=== PATIENT | female | born 1950 | race Caucasian/White ===

== ENCOUNTER 2019-07-20 12:17 | Inpatient (IN) | payer MEDICARE ==
[~2019-07-20] VITALS: Ht 157.5 cm; Wt 79.2 kg
[2019-07-20] MEDS ORDERED: ZYPREXA10 MG (12:28)
[2019-07-20 13:14] LABS: BASOPHILS 0.1 % (0-2); EOSINOPHILS 1.9 % (0-7); HEMATOCRIT 40.6 % (36.0-48.0); HEMOGLOBIN 12.8 g/dL (12-16); IMMATURE GRANULOCYTES 0.1 % (0-5); LYMPHOCYTES 25.3 % (15-50); MCH 27.8 pg (26.0-34.0); MCHC 31.5 g/dL (31.0-37.0); MCV 88.3 fL (80.0-100.0); MEAN PLATELET VOLUME 10.2 fL (7.4-10.4); MONOCYTES 9.2 % (2-11); NEUTROPHILS 63.4 % (40-80); PLATELET COUNT 236 10x3/uL (130-400); RDW 14.2 % (11.5-14.5); WBC 6.7 10x3/uL (4.8-10.8)
[2019-07-20 13:23] LABS: ANION GAP 5.1 mmol/L (8-16); CALCIUM 8.6 mg/dL (8.5-10.1); CARBON DIOXIDE 28.3 mmol/L (21.0-32.0); POTASSIUM - SERUM 3.4 mmol/L (3.5-5.1)
[2019-07-20 13:28] LABS: NITRITE NEGATIVE (NEGATIVE); SPECIFIC GRAVITY 1.015 (1.005-1.020)
[2019-07-20 13:29] LABS: BILIRUBIN NEGATIVE (NEGATIVE); GLUCOSE NEGATIVE (NEGATIVE); KETONE SMALL mg/dL (NEGATIVE); UROBILINOGEN NORMAL (NORMAL)
[2019-07-20 13:35] LABS: BACTERIA FEW /hpf (NEGATIVE); EPITHELIAL CELLS OCC /hpf (0-5); RED CELLS - URINE 0-5 /hpf (0-5); WHITE CELLS - URINE RARE /hpf (NEGATIVE)
[2019-07-20 13:37] LABS: ALBUMIN 3.6 g/dL (3.4-5.0); BILIRUBIN - TOTAL 0.54 mg/dL (0.2-1.3); THYROID STIMULATING HORMONE 3.26 uIU/mL (0.36-3.74)
[2019-07-20 14:39] LABS: UDS - AMPHET NEGATIVE QUAL (NEGATIVE); UDS - BARB NEGATIVE QUAL (NEGATIVE); UDS - BENZO NEGATIVE QUAL (NEGATIVE); UDS - COCAINE NEGATIVE QUAL (NEGATIVE); UDS - OPIATE NEGATIVE QUAL (NEGATIVE); UDS - PCP NEGATIVE QUAL (NEGATIVE); UDS - THC NEGATIVE QUAL (NEGATIVE)
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
[2019-07-20 17:06] VITALS: BP 186/89; BMI 33.2
--- NOTE | 2019-07-20 18:35 | NUR ---
PT ARRIVED TO UNIT VIA W/C [facility] WITH ER STAFF FOR INCREASED CONFUSION AND SCHIZOPHRENIA. PT IS FRIENDLY WITH STAFF. CONFUSION NOTED. VITAL SIGNS: B/P: 186/89, P: 74, R: 20, T: 97.5. WEIGHT: 170.0. MARIEL TAN SON GAVE CONSENT FOR PT TO BE ADMITTED. PT CAME WITH GLASSES AND ONE SET OF CLOTHES. PT CAN STATE NAME BUT NOT PLACE, TIME. SON WANTS CODE STATUS: FULL CODE. PT AMBULATES WITH FLAT AFFECT.
[2019-07-20 18:45] LABS: CHOL - HDL RATIO 3.2 ratio (2.3-4.1); LDL-HDL RATIO 1.7 ratio (1.5-3.5)
--- NOTE | 2019-07-20 18:48 | NUR ---
NURSE ATTEMPTED TO CALL SON TO GIVE CODEWORD. NO ANSWER.
--- NOTE | 2019-07-20 19:13 | NUR ---
SPOKE WITH PT SON AND GAVE CODE WORD. NURSE LET HIM KNOW SHE WAS OKAY AND ON OUR UNIT. HE SAID HE WOULD BE BRINGING HER GLASSES AND NURSE INFORMED HIM HE COULD BRING 2 PAIRS OF CLOTHES WITH NO STRINGS. HE VERBALIZIED UNDERSTANDING.
--- NOTE | 2019-07-20 22:20 | NUR ---
B) Patient is alert and oriented to self, confused and wanders at times, poor short term memory, has been shown her bathroom several times then wanders the hallways looking for her bathroom, I) Administered scheduled medications as ordered, monitored for safety, redirected as needed R) Medication compliant, mild exit seeking, restless, P) Continue plan of care.
[2019-07-21 05:30] LABS: CHOL - HDL RATIO 3.1 ratio (2.3-4.1); LDL-HDL RATIO 1.8 ratio (1.5-3.5)
--- NOTE | 2019-07-21 08:01 | NUR ---
RED'D PT SITTING IN CHAIR AWAITING BREAKFAST. NO DISTRESS NOTED. PT CAN MAKE SOME NEEDS KNOWN WITH ENCOURAGMENT. PT IS CONFUSED AND DISORIENTED. PT IS ALERT AND ORIENTED TO SELF ONLY. REDIRECT AND REORIENT NEEDED. PT AMBULATES. PT HAS POOR INSIGHT TO SITUATION. PREVIOUS SHIFT REOPRTED PT WANDERING HALLWAYS LOOKING FOR HER BATHROOM. PT IS PLESANT THIS A.M. WILL CONT PLAN OF CARE. WILL CONT TO MONITOR.
[2019-07-21 11:05] VITALS: BP 135/73
[2019-07-21 14:58] VITALS: Ht 157.5 cm; Wt 79.2 kg
[2019-07-21 20:00] VITALS: BP 97/58
--- NOTE | 2019-07-21 20:01 | NUR ---
B.) PT IS ALERT AND ORIENTED TO SELF AND PLACE. SHE IS RECEIVED IN THE HALLWAY OUTSIDE THE NURSES STATION. SHE IS ABLE TO AMBULATE WITHOUT ASSIST. SHE IS CALM AND COOPERATIVE WITH STAFF. SHE IS OBSERVED SOCIALIZING WITH HER PEERS. SHE ADMITS SHE IS HEARING THINGS. I.) PROVIDED PM MEDICATIONS PRESCRIBED. REDIRECT NEEDED. R.) COMPLIANT WITH ALL MEDICATIONS. EASY TO REDIRECT. P.) WILL CONTINUE TO MONITOR.
[2019-07-22 08:07] VITALS: BP 151/76
--- NOTE | 2019-07-22 08:37 | NUR ---
The patient is awake and alert and oriented to self and place, she has been socializing with staff and peers, admits to hearing voices, she is self aware. She ambulates independently. Provide prescribed meds. The patient is compliant with meds and unit milieu. She enjoys walking in the vega for exercise. Continue POC.
[2019-07-22 10:13] VITALS: BP 151/76
--- NOTE | 2019-07-22 20:39 | NUR ---
B.) PT IS ALERT AND ORIENTED TO SELF AND SITUATION. SHE IS ABLE TO VOICE NEEDS AND WANTS. SHE IS CALM, COOPERATIVE AND PLEASANT WITH STAFF. SHE HAS APPROPRIATE AFFECT. PT DENIES WANTS AND NEEDS AT THIS TIME. I.) PROVIDED PM MEDICATIONS PRESCRIBED. REDIRECT NEEDED. R.) COMPLIANT WITH ALL MEDICATIONS. EASY TO REDIRECT. P.) WILL CONTINUE TO MONITOR.
[2019-07-23 05:17] VITALS: BP 116/65
[2019-07-23 08:24] VITALS: BP 127/72
--- NOTE | 2019-07-23 09:47 | NUR ---
The patient is awake and alert she is pleasant, she denies hearing any voices. She ambulates independently. Provide prescribed meds. The patient is compliant with meds. Continue POC.
--- NOTE | 2019-07-23 10:44 | NUR ---
Spoke to the patient's son George and he says he is going to bring her some more clothes.
--- NOTE | 2019-07-23 18:37 | NUR ---
RECEIVED IN BEDROOM. RESTING IN BED WITH EYES CLOSED. RESPONDS TO VOICE. CALM AND COOPERATIVE WITH CARE AND ASSESSMENT. ENCOURAGE TO EXPRESS NEEDS. CONTINUES TO REST CALMLY IN BED. CONTINUE PLAN OF CARE.
[2019-07-23 18:55] VITALS: BP 115/68
[2019-07-24 08:29] VITALS: BP 122/70
--- NOTE | 2019-07-24 12:00 | NUR ---
RECEIVED IN HALLWAY OUTSIDE OF NURSES STATION. CALM AND COOPERATIVE WITH CARE AND ASSESSMENT. HALLUCINATING. SEEING CATS UNDER CHAIRS. REDIRECT AND REORIENT NEEDED. EATING AT THIS TIME. CONTINUE PLAN OF CARE.
--- NOTE | 2019-07-24 13:50 | NUR ---
Nutrition Follow-up: Eating well. Diet: Regular PO intake: 84% avg x 9 meals Wt: 168.6# (07/22); 170# (07/19) Last BM: 07/22 Labs reviewed Meds noted: vitamin D -Encourage PO intake and honor food preferences. -Monitor wt. -RD following.
--- NOTE | 2019-07-24 18:53 | NUR ---
RECEIVED IN DAYROOM. SITTING IN A CHAIR WITH PEERS AT HER SIDE. CALM AND COOPERQATIVE WITH CARE AND ASSESSMENT. COFUSED. ENCOURAGE TO EXPRESS NEEDS. REDIRECT AND REORIENT NEEDED. CONTINUES TO SIT CALMLY IN DAYROOM. CONTINUE PLAN OF CARE.
[2019-07-24 19:17] VITALS: BP 107/66
--- NOTE | 2019-07-24 22:49 | NUR ---
STATES THERE IS A LITTLE BOY SITTING IN HER ROOM WITH HER AND HE TALKS TO HER. SEEING BUGS AND OTHER THINGS IN HER ROOM.
[2019-07-25 07:59] VITALS: BP 111/70
--- NOTE | 2019-07-25 10:28 | PN ---
PATIENT:SUSHANT TAN MEDICAL RECORD: [id number] LOCATION:[facility] ADMISSION DATE: 07/20/19 PROGRESS NOTE DATE OF SERVICE: 07/24/2019 SUBJECTIVE: The patient's case was discussed with staff. She has no new complaint. OBJECTIVE: The patient denies intent to harm herself or others. She generally is tolerating her medicines well. She apparently did have an episode this morning where she saw a cat under the table and became very distressed by this for reasons that are unclear. ASSESSMENT: Schizophrenia. PLAN: The patient will have her Zyprexa increased to 20 mg at bedtime. She will be monitored for clinical changes associated with its use. TRANSINT:[id number] Voice Confirmation ID: [id number] DOCUMENT ID: [id number] LISE KUMAR MD at 1028 CC: [id number] DICTATION DATE: 07/24/19 1525 SERVICE ESTABLISHMENT ATTENDANT: 07/24/19 2312 ADM IN [place] [id number] [place] [id number]
--- NOTE | 2019-07-25 11:04 | NUR ---
RECEIVED IN HALLWAY OUTSIDE OF NURSES STATION. CALM AND COOPERATIVE WITH CARE AND ASSESSMENT. VERY CONFUSED. HALLUCINATING. REDIRECT AND REORIENT NEEDED. PARTICIPATING IN GROUP AT THIS TIME. CONTINUE PLAN OF CARE.
--- NOTE | 2019-07-25 11:13 | NUR ---
ERNA GOT A PHONE CALL FROM PT'S SON MARIEL TAN. SW UPDATED ON PT'S STATUS AND TREATMENT. MARIEL STATED HE WANTED HIS SISTER TO HAVE ACCESS TO BE ABLE TO CHECK ON PT. ERNA EXPLAINED HE WOULD NEED TO GIVE PASSWORD TO ANY FAMILY HE WANTS TO HAVE ACCESS. MARIEL VERBALIZED UNDERSTANDING OF DISCUSSION.
--- NOTE | 2019-07-25 19:12 | NUR ---
RECEIVED IN DAYROOM. WALKING AROUND CHECKING DOORS. WANTS TO LEAVE. CONFUSED. COOPERATIVE WITH CARE AND ASSESSMENT. ENCOURAGE TO EXPRESS NEEDS. CONTINUES TO EXIT SEEKING. CONTINUE PLAN OF CARE.
[2019-07-25 21:00] VITALS: BP 133/57
[2019-07-26 09:04] VITALS: BP 126/78
--- NOTE | 2019-07-26 09:39 | PN ---
PATIENT:SUSHANT TAN MEDICAL RECORD: [id number] LOCATION:[facility] ADMISSION DATE: 07/20/19 PROGRESS NOTE DATE OF SERVICE: 07/25/2019 SUBJECTIVE: The patient's case was discussed with staff. She has no new complaint. OBJECTIVE: The patient is having active hallucinations. She is very impaired and limited in her insight. She also has evidence of clear cognitive impairment and based upon information provided by her son and daughter it is clear that she has a dementing illness that is associated with this acute episode. ASSESSMENT: 1. Schizophrenia. 2. Dementia. PLAN: The patient will be started on Namenda at a dose of 2.5 mg twice daily. She is going to be maintained on the Zyprexa, which is at a high dose of 20 mg daily, but she has not had an opportunity for it to become effective. TRANSINT:[id number] Voice Confirmation ID: [id number] DOCUMENT ID: [id number] LISE KUMAR MD at 0939 CC: [id number] DICTATION DATE: 07/25/19 1300 PROGRAMMABLE LOGIC CONTROLLER ASSEMBLER: 07/25/[address] [facility] [address] [place] [address]
--- NOTE | 2019-07-26 12:00 | NUR ---
RECEIVED IN HALLWAY OUTSIDE OF NURSES STATION. CALM AND COOPERATIVE WITH CARE AND ASSESSMENT. HALLUCINATING AT TIMES. SEEING ANIMALS RUN AROUND. REDIRECT AND REORIENT NEEDED. EATING LUNCH AT THIS TIME. CONTINUE PLAN OF CARE.
--- NOTE | 2019-07-26 20:32 | NUR ---
B.) PT IS ALERT AND ORIENTED TO SELF ONLY. SHE HAS POOR INSIGHT INTO HER SITUATION. SHE IS ABLE TO AMBULATE ON HER OWN WITHOUT ASSIST. SHE IS RECIEVED OUTSIDE THE NURSES STATION TALKING ON THE PHONE WITH HER DAUGHTER. SHE IS OBSERVED SOCIALIZING WITH PEERS. I.) PROVIDED PM MEDICATIONS PRESCRIBED. REDIRECT OFTEN. R.) COMPLIANT WITH ALL MEDICATIONS. EASY TO REDIRECT. P.) WILL CONTINUE TO MONITOR.
[2019-07-26 20:38] VITALS: BP 103/61
--- NOTE | 2019-07-26 20:40 | NUR ---
B.) PT IS ALERT AND ORIENTED TO SELF ONLY. HE HAS POOR INSIGHT INTO HIS SITUATION. HE IS RECEIVED IN HIS GERICHAIR OUTSIDE THE NURSES STATION. HE OCCASIONALLY YELLS OUT FROM HIS CHAIR. HE HAS A PRODUCTIVE COUGH AT TIMES. I.) PROVIDED PM MEDICATIONS PRESCRIBED. REDIRECT OFTEN. R.) COMPLIANT WITH ALL MEDICATIONS. EASY TO REDIRECT AT TIMES. P.) WILL CONTINUE TO MONITOR.
--- NOTE | 2019-07-27 01:17 | NUR ---
PT IS HALLUCINATING THINGS ON THE FLOOR IN HER BATHROOM. SHE STATES "IM REACHING FOR THAT TOWEL." REORIENTED PT. WILL CONTINUE TO MONITOR.
[2019-07-27 08:56] VITALS: BP 139/72
--- NOTE | 2019-07-27 10:02 | NUR ---
PT SITTING AND SOCIALIZING WITH PEERS AT TIMES. PT IS QUIET UNLESS SPOKEN TO. PT IS ALERT AND ORIENTED TO PERSON, PLACE. PT IS DISORIENTED TO SITUATION AND TIME. NURSE NOTED PT HALLUCINATIONS WHEN PT ATTEMPTED TO LEAVE OUT THE DOOR INTO THE YARD. PT IS FRIENDLY WITH STAFF AND PEERS. PT IS COMPLIANT WITH MEDS, VITALS AND ASSESSMENTS. PT CAN MAKE NEEDS KNOWN. WILL CONT PLAN OF CARE.
--- NOTE | 2019-07-27 13:01 | PN ---
PATIENT:SUSHANT TAN MEDICAL RECORD: [id number] LOCATION:[facility] ADMISSION DATE: 07/20/19 PROGRESS NOTE DATE OF SERVICE: 07/26/2019 SUBJECTIVE: The patient's case was discussed with staff. She has no new complaint. OBJECTIVE: The patient denies hallucinations, but the staff reports that she has been having them. She is calm when she talks to me, but staff is also reporting that she has been belligerent and intrusive. She has been taking blankets and covering up other patients and telling them that they can hide there and will be safe. ASSESSMENT: 1. Schizophrenia. 2. Dementia. PLAN: The patient will be treated with her current dose of Zyprexa, which is substantial. It just simply has not had an opportunity to have much in the way of an effect. I am also giving her Namenda for cognitive impairment, but that dose will be maintained the same today. I think that she is showing improvement, but is still highly disorganized. TRANSINT:[id number] Voice Confirmation ID: [id number] DOCUMENT ID: [id number] LISE KUMAR MD at 1301 CC: [id number] DICTATION DATE: 07/26/19 1648 DIRECTOR OF BANDS: 07/27/19 0038 ADM IN [facility] [address] [place] [address]
--- NOTE | 2019-07-27 14:28 | NUR ---
Nutrition Follow-up: Overall good PO intake. Ate 75-100% of meals yesterday. Diet: Regular PO intake: 84% avg x 9 meals Wt: 168.6# (07/22); 170# (07/19) Last BM: 07/26 per chart No new labs Meds reviewed -Encourage PO intake and honor food preferences. -Monitor wt. -RD following.
[2019-07-27 19:32] VITALS: BP 129/63
--- NOTE | 2019-07-27 20:15 | NUR ---
B.) PT IS ALERT AND ORIENTED TO SELF AND PLACE. SHE HAS POOR INSIGHT INTO HER SITUATION. SHE IS CALM, COOPERATIVE AND PLEASANT WITH STAFF. SHE IS OBSERVED SOCIALIZING WITH PEERS. SHE HAS A BLUNTED AFFECT AT TIMES. DENIES ANY WANTS OR NEEDS AT THIS TIME. I.) PROVIDED PM MEDICATIONS PRESCRIBED. REDIRECT NEEDED. R.) COMPLIANT WITH ALL MEDICATIONS. EASY TO REDIRECT. P.) WILL CONTINUE TO MONITOR.
--- NOTE | 2019-07-28 07:54 | NUR ---
The patient is up and awake, she is pleasant. She is able to ambulate independently. She is talking to to other patients. She is oriented x3, but she is forgetful at times. Provide prescribed meds. The patient is compliant with meds. Continue POC.
[2019-07-28 08:41] VITALS: BP 125/72
--- NOTE | 2019-07-28 19:46 | NUR ---
PATIENT IS ACTUALLY ORIENTED TO SELF, TIME, PLACE AND SITUATION. SHE STATES THAT HER MEDS GOT "MESSED UP". SHE IS A LITTLE WITHDRAWN, QUIET, BEEN TAKING MEDS. HAS BEEN MED COMPLIANT. WILL FOLLOW POC
[2019-07-28 19:49] VITALS: BP 146/71
[2019-07-29 07:45] VITALS: BP 140/80
--- NOTE | 2019-07-29 10:49 | NUR ---
The patient is awake and alert, she is pleasant she is able to differentiate betwen hallucinations and reality. She says she is feeling so much better and she is not hearing voices. Provide prescribed meds. The patient is compliant with meds and unit milieu. Continue POC.
[2019-07-29 19:32] VITALS: BP 120/66
--- NOTE | 2019-07-29 22:21 | NUR ---
B)RECEIVED PATIENT SITTING IN THE DAYROOM. EMOTIONAL AND BECOMES TEARFUL. TOLD PATIENT HER DAUGHTER RUDDY CALLED CHECKING ON HER BUT IT WAS PAST TIME FOR PATIENTS TO RECEIVE CALLS. PATIENT BECAME TEARFUL RELATING SHE WISHED SHE COULD HAVE TALKED WITH HER DAUGHTER. ORIENTED TO SELF ONLY THINKING IT WAS THE END OF . RELATES REASON FOR HOSPITALIZATION IS SHE GOT HER MEDICINE MIXED UP. UPON ADMISSION PATIENT WAS HAVING HALLUCINATIONS. I)ADMINISTER MEDS AND MONITOR COMPLIANCE. MONITOR FOR HALLUCINATIONS AND REORIENT WITH REALITY BASED INFORMATION. R)MED COMPLIANT. NO HALLUCINATIONS NOTED NOR REPORTED BY PATIENT. P)CONTINUE POC AND PROVIDE SAFE ENVIRONMENT.
[2019-07-30 08:31] VITALS: BP 119/65
--- NOTE | 2019-07-30 12:00 | NUR ---
RECEIVED IN HALLWAY OUTSIDE OF NURSES STATION. CALM AND COOPERATIVE WITH CARE AND ASSESSMENT. NO HALLUCINATIONS. REDIRECT AND REORIENT NEEDED. EATING LUNCH AT THIS TIME. CONTINUE PLAN OF CARE.
--- NOTE | 2019-07-30 16:26 | PN ---
PATIENT:SUSHANT TAN MEDICAL RECORD: [id number] LOCATION:[facility] ADMISSION DATE: 07/20/19 PROGRESS NOTE DATE OF SERVICE: 07/27/2019 SUBJECTIVE: The patient's case was discussed with staff. She has no new complaint. OBJECTIVE: The patient denies intent to harm herself or others. She generally is tolerating her medicines well. Staff is reporting hallucinations. She is denying it. ASSESSMENT: Schizophrenia. PLAN: Current medicines have been reviewed and will be maintained. Her long-term prognosis is guarded. TRANSINT:[id number] Voice Confirmation ID: [id number] DOCUMENT ID: [id number] LISE KUMAR MD at 1626 CC: [id number] DICTATION DATE: 07/27/19 174 DESK MONITOR: 07/27/19 2328 ADM IN [place] [id number] [place] [address]
--- NOTE | 2019-07-30 19:08 | NUR ---
RECEIVED IN DAYROOM. SITTING IN A CHAIR WITH PEERS AT HER SIDE. CALM AND COOPERATIVE WITH CARE AND ASSESSMENT. ENCOURAGE TO EXPRESS NEEDS. CONTINUES TO SIT QUIETLY IN DAYROOM. CONTINUE PLAN OF CARE.
[2019-07-30 19:28] VITALS: BP 89/49
[2019-07-31 08:43] VITALS: BP 120/70
--- NOTE | 2019-07-31 12:00 | NUR ---
RECEIVED IN HALLWAY OUTSIDE OF NURSES STATION. CALM AND COOPERATIVE WITH CARE AND ASSESSMENT. NO HALLUCINATIONS TODAY. REDIRECT AND REORIENT NEEDED. EATING LUNCH AT THIS TIME. CONTINUE PLAN OF CARE.
--- NOTE | 2019-07-31 14:25 | NUR ---
SW ATTEMPTED CONTACT TO SONMARIEL. SW COULDN'T LEAVE VOICEMAIL.
[2019-07-31 19:22] VITALS: BP 127/74
--- NOTE | 2019-07-31 19:26 | NUR ---
RECEIVED IN DAYROOM. SITTING IN A CHAIR WITH PEERS AT HER SIDE. CALM AND COOPERATIVE WITH CARE AND ASSESSMENT. ENCOURAGE TO EXPRESS NEEDS. REDIRECT AND REORIENT NEEDED. CONTINUES TO SIT CALMLY IN DAYROOM. CONTINUE PLAN OF CARE.
[2019-08-01 07:47] VITALS: BP 120/76
--- NOTE | 2019-08-01 08:30 | NUR ---
RECEIVED IN HALLWAY OUTSIDE OF NURSES STATION. CALM AND COOPERATIVE WITH CARE AND ASSESSMENT. NO HALLUCINATIONS. REDIRECT AND REORIENT NEEDED. EATING BREAKFAST AT THIS TIME. CONTINUE PLAN OF CARE.
--- NOTE | 2019-08-01 11:32 | PN ---
PATIENT:SUSHANT TAN MEDICAL RECORD: [id number] LOCATION:[facility] ADMISSION DATE: 07/20/19 PROGRESS NOTE DATE OF SERVICE: 07/31/2019 SUBJECTIVE: The patient's case was discussed with staff. She has no new complaint. OBJECTIVE: The patient continues to be disorganized and delusional. She has evidence of schizophrenia as well as dementia. She has not been aggressive today. It is my opinion that she will need 06-xekk-p-day supervision. Her long-term prognosis is guarded. TRANSINT:[id number] Voice Confirmation ID: [id number] DOCUMENT ID: [id number] LISE KUMAR MD at 1132 CC: [id number] DICTATION DATE: 07/31/19 1458 SONOGRAPHER: 07/31/191944 ADM IN [facility] [address] [place] [address]
--- NOTE | 2019-08-01 19:22 | NUR ---
RECEIVED IN DAYROOM. SITTING IN A CHAIR WITH PEERS AT HER SIDE. CALM AND COOPERATIVE WITH CARE AND ASSESSMENT. ENCOURAGE TO EXPRESS NEEDS. CONTINUES TO SIT CALMLY IN DAYROOM. CONTINUE PLAN OF CAER.
[2019-08-01 19:43] VITALS: BP 101/62
[2019-08-02 08:15] VITALS: BP 107/57
--- NOTE | 2019-08-02 10:07 | NUR ---
The patient is awake, but she is sleepy this am, she awakened for breakfast and his medications. She has not made any mention of hallucinations. She has poor insight into her situation. She ambulates independently. Provide prescribed meds. The patient is compliant with meds. Continue POC.
--- NOTE | 2019-08-02 10:17 | PN ---
PATIENT:SUSHANT TAN MEDICAL RECORD: [id number] LOCATION:[facility] ADMISSION DATE: 07/20/19 PROGRESS NOTE DATE OF SERVICE: 08/01/2019 SUBJECTIVE: The patient's case was discussed with staff. She has no new complaint. OBJECTIVE: The patient is sleeping and eating well. She has not been aggressive. She still has some delusional thought content. ASSESSMENT: 1. Schizophrenia. 2. Dementia. PLAN: The patient is in need of 83-qzen-q-day supervision. I will discuss this with the treatment team later today and arrangements will be made for her to be discharged soon. TRANSINT:[id number] Voice Confirmation ID: [id number] DOCUMENT ID: [id number] LISE KUMAR MD at 1017 CC: [id number] DICTATION DATE: 08/01/19 1214 AUTOMOTIVE WORKER: 08/01/19 1812 ADM IN [facility] [address] [place] [address]
--- NOTE | 2019-08-02 11:29 | NUR ---
SPOKE WITH PT SON ABOUT HIS SISTER TIMES TO GUN FERTILIZER PT ON WEDNESDAY AFTER 9 OR WEDNESDAY AFTER 12. NURSE STATED SHE WOULD LET [facility] KNOW PICKUP TIMES LATER TODAY AND CALL HER TO ASK FOR THE BEST DECISION. HE AGREED AND GAVE SISTER NUMBER: RUDDY TAN [phone].
--- NOTE | 2019-08-02 12:44 | NUR ---
Nutrition Follow-up: Eating well. Diet: Regular PO intake: 91% avg x 9 meals Wt: 170.4# (07/29); 168.6# (07/22) Last BM: 07/28 No new labs Meds noted: vitamin D -Encourage PO intake and honor food preferences. -Monitor wt. -RD following.
[2019-08-02] MEDS ORDERED: LIPITOR10 MG PO (14:29)
[2019-08-02] MEDS ORDERED: LISINOPRIL40 MG PO (14:30)
[2019-08-02] MEDS ORDERED: VITAMIN D5000 UNI3 PO (14:30)
[2019-08-02] MEDS ORDERED: ZYPREXA5 MG PO (14:30)
[2019-08-02] MEDS ORDERED: NAMENDA5 MG PO (14:30)
[2019-08-02 20:30] VITALS: BP 134/66
--- NOTE | 2019-08-02 21:15 | NUR ---
PATIENT QUIET, ALERT, LITTLE FLAT, MAKES ALL NEEDS KNOWN, COMPLIANT WITH MEDS, WILL FOLLOW POC
[2019-08-03 08:16] VITALS: BP 146/87
--- NOTE | 2019-08-03 08:27 | PN ---
PATIENT:SUSHANT TAN MEDICAL RECORD: [id number] LOCATION:[facility] ADMISSION DATE: 07/20/19 PROGRESS NOTE DATE OF SERVICE: 08/02/2019 SUBJECTIVE: The patient's case was discussed with staff. She has no new complaint. OBJECTIVE: The patient is cooperative and eating and sleeping well. She has been calm. She still has some delusional thought content, but it is not particularly overt and on casual conversations she comes across as impaired cognitively, but not otherwise significantly distressed. ASSESSMENT: 1. Schizophrenia. 2. Dementia. PLAN: The patient will be transitioned out of the hospital tomorrow. She is in need of 25-gldo-h-day supervision. Her long-term prognosis is guarded. TRANSINT:[id number] Voice Confirmation ID: [id number] DOCUMENT ID: [id number] LISE KUMAR MD at 0827 CC: [id number] DICTATION DATE: 08/02/19 142 CHANNEL SALES DIRECTOR: 08/02/19 1702 ADM IN [place] [id number] [place] [address]
[2019-08-03 08:59] VITALS: BP 146/87
--- NOTE | 2019-08-03 11:29 | NUR ---
The patient is awake and alert, she is pleasant she is not showing any signs of hallucinations and she denies voices at this time. She is calm. Provide prescribed meds. The patient is compliant with meds. D/C paperwork complete now, patient is packed and ready to go home. Continue POC.
--- NOTE | 2019-08-03 13:23 | NUR ---
PT DISCHARGED HOME WITH DAUGHTER AT THIS TIME. WENT OVER PT BELONGINGS LIST. SHOE LACES PUT BACK INTO WHITE SHOES. DAUGHTER WOULD PREFER TO MAKE DOCTOR APPT SO SHE CAN DO IT AROUND HER SCHEDULE. ALL MEDICATIONS SHOULD HAVE BEEN FAXED TO THE PHARMACY IF NOT SHE COULD CALL AND NURSE WOULD CALL THEM IN TO THE PHARMACY. NURSE EXPLAINED WE DID A 30 DAY SUPPLY AND THEN THE PRIMARY DOCTOR WOULD CONTINUE WITH THOSE MEDICATIONS. PAPERWORK FAXED TO DR. PADRON OFFICE. PT AMBULATED TO CAR WITH DAUGHTER WITH BELONGINGS.
--- NOTE | 2019-08-07 13:22 | DS ---
PATIENT:SUSHANT TAN :46 MEDICAL RECORD: [id number] DISCHARGE SUMMARY ADMISSION DATE: 07/20/19 DISCHARGE DATE: 08/03/19 IDENTIFYING DATA: The patient is 68 years old and she was admitted to the hospital on a voluntary basis. CHIEF COMPLAINT: Hallucinations. HISTORY OF PRESENT ILLNESS: The patient was initially brought to the Emergency Room at [facility]. Her son reports that she has become increasingly confused and has had some hallucinations. She was denying thoughts of harming herself and apparently there had been some medication changes prior to admission. HOSPITAL COURSE: The patient was admitted to the hospital and fully evaluated from both a medical, psychological, and social standpoint. She was treated with both mood stabilizing and memory enhancing medications. She showed significant improvement through the course of the hospitalization. She was unfortunately found also to have a dementing illness that was mild to moderate in severity. The psychotic symptoms improved and she was subsequently transitioned home. DISCHARGE DIAGNOSES: AXIS I: Schizophrenia, chronic undifferentiated. Major neurocognitive disorder of the Alzheimer's type. AXIS II: None. AXIS III: Hypokalemia. AXIS IV: Moderate stressors. AXIS V: Global assessment of functioning is 35. PLAN: At the time of discharge, the patient was in good behavioral control and had no active thoughts of harming herself or others. She was tolerating her medications well. Her long-term prognosis is guarded. TRANSINT:[id number] Voice Confirmation ID: [id number] DOCUMENT ID: [id number] LISE KUMAR MD at 1322 CC: [id number] DICTATION DATE: 08/03/19 152 NAVAL DESIGNER: 08/03/19 2300 DIS IN 08/03/19 [place] [id number] [place] [id number]
== END 2019-08-03 13:15 | disposition home or self-care (01) | DRG 884 ==
LOC: D.ER 12:17 → D.PSYCH 14:28
PROVIDERS: Family Medicine; ADMIT Psychiatry & Neurology Psychiatry; ATTEND Psychiatry & Neurology Psychiatry
DX: F02.81 Dementia in other diseases classified elsewhere, unspecified severity, with behavioral disturbance (principal); G30.9 Alzheimer's disease, unspecified; I10 Essential (primary) hypertension; E78.5 Hyperlipidemia, unspecified; F20.9 Schizophrenia, unspecified; E55.9 Vitamin D deficiency, unspecified; F41.8 Other specified anxiety disorders